=== PATIENT | male | born 1985 | race Caucasian/White ===

== ENCOUNTER 2018-02-20 18:22 | Emergency (ER) | payer MEDICAID ==
[~2018-02-20] VITALS: Ht 177.8 cm; Wt 88.5 kg
[2018-02-20] MEDS ORDERED: Norco 5mg/325mg tab ORAL ONE (19:00)
[2018-02-20 19:30] VITALS: BP 127/60
[2018-02-20 20:14] LABS: APPEARANCE,URINE SLIGHTLY CLOUDY; BILIRUBIN, URINE NEGATIVE (NEGATIVE); COLOR,URINE AMBER; GLUCOSE, URINE (UA) NEGATIVE (NEGATIVE); KETONES,URINE NEGATIVE (NEGATIVE); LEUKOCYTE ESTERASE ,URINE 1+ (NEGATIVE); NITRITE,URINE NEGATIVE (NEGATIVE); PH,URINE 7 (4.5-8.0); PROTEIN,URINE 2+ (NEGATIVE); UROBILINOGEN,URINE 1 MG/DL (0.0-1.0)
--- NOTE | 2018-02-20 20:42 | Emergency Room Report ---
History of Present Illness General Chief Complaint: Abdominal Pain Source: Patient Present Illness HPI 32 YO male presents to the ED c/o 02/25 in severity acute onset of flank pain that he describes as sharp and severe that was on and off for about 45 minutes. pt. denies nausea or vomiting, constipation or diarrhea. He denies abdominal tenderness. denies dysuria, hematuria, or urinary frequency. pt. reports hx. of renal stone. denies fevers or chills. denies reproducibility. denies recent trauma or fall. Allergies: Coded Allergies: No Known Allergies (Unverified , 02/20/18) Patient History Past Medical History: see triage record Past Surgical History: none Pertinent Family History: none Reviewed Nursing Documentation: PMH: Agreed; PSxH: Agreed Nursing Documentation-PMH Past Medical History: No History, Except For Review of Systems All Other Systems: negative except mentioned in HPI Physical Exam Vital Signs Date Time Temp Pulse Resp B/P (MAP) Pulse Ox O2 Delivery O2 Flow Rate FiO2 02/20/18 18:17 98.4 86 16 132/78 100 Room Air 98.4 Sp02 EP Interpretation: reviewed, normal General Appearance: no apparent distress, alert, GCS 15, non-toxic Head: normocephalic, atraumatic ENT: hearing grossly normal, normal voice Neck: full range of motion Respiratory: lungs clear, normal breath sounds, speaking full sentences Cardiovascular #1: regular rate, rhythm Gastrointestinal: normal bowel sounds, non tender, soft, non-distended, no guarding Genitourinary: normal inspection, no CVA tenderness Musculoskeletal: back normal, normal range of motion, non-tender Neurologic: alert, oriented x3, responsive, motor strength/tone normal, sensory intact, speech normal, grossly normal Psychiatric: judgement/insight normal Skin: normal color, no rash, warm/dry, well hydrated, other - no bruises or rashes Medical Decision Making PA Attestation Dr. guzman is my supervising Physician whom patient management has been discussed with. Diagnostic Impression: Primary Impression: Renal calculi Additional Impression: Urinary tract infection Qualified Codes: N30.01 - Acute cystitis with hematuria ER Course Pt. presents to the ED c/o 02/25 in severity acute onset of flank pain that he describes as sharp and severe that was on and off for about 45 minutes. pt. denies nausea or vomiting, constipation or diarrhea. He denies abdominal tenderness. denies dysuria, hematuria, or urinary frequency. pt. reports hx. of renal stone. denies fevers or chills. denies reproducibility. denies recent trauma or fall. Ddx considered but are not limited to Diverticulitis, acute appy, diarrhea,UC, PUD, GE, pancreatitis, gallstone, kidney stone, pyelonephritis, UTI, obstruction. Vital signs: are WNL, pt. is afebrile H&PE are most consistent with renal stone ORDERS: - UA: bacteria and RBC's with elevated inflammatory markers consistent with UTI - CT abdomen and pelvis no contrast: 3mm renal stone in the right ureter, non obstruction per official radiology report. ED INTERVENTIONS: -- 1000NS --5mg Bland - Flomax PO -d/w pt. results of CT, and that 3mm should pass, however he needs to follow up with his PCP in 3-5 days. d/w pt. that hydration is very important. pt. requests work note excusing him for today. DISCHARGE: At this time pt. is stable for d/c to home. Will provide printed patient care instructions, and any necessary prescriptions. Care plan and follow up instructions have been discussed with the patient prior to discharge. Labs Test 02/20/18 19:15 Urine Color Kaylie Urine Appearance Slightly cloudy Urine pH 7 (4.5-8.0) Urine Specific [place] 1.010 (1.005-1.035) Urine Protein 2+ (NEGATIVE) Urine Glucose (UA) Negative (NEGATIVE) Urine Ketones Negative (NEGATIVE) Urine Blood 5+ (NEGATIVE) Urine Nitrite Negative (NEGATIVE) Urine Bilirubin Negative (NEGATIVE) Urine Ictotest Negative (NEGATIVE) Urine Urobilinogen 1 MG/DL (0.0-1.0) Urine Leukocyte Esterase 1+ (NEGATIVE) Urine RBC Tntc /HPF (0 - 0) Urine WBC 10-15 /HPF (0 - 0) Urine Squamous Epithelial Cells Occasional /LPF Urine Calcium Oxalate Crystals Many /LPF (NONE) Urine Bacteria Moderate /HPF (NONE) CT/MRI/US Diagnostic Results CT/MRI/US Diagnostic Results : Imaging Test Ordered: CT Abdomen and pelvis no contrast Impression CT abdomen and pelvis no contrast: 3mm renal stone in the right ureter, non obstruction per official radiology report. Last Vital Signs Date Time Temp Pulse Resp B/P (MAP) Pulse Ox O2 Delivery O2 Flow Rate FiO2 02/20/18 19:30 97.8 67 16 127/60 100 Room Air 97.8 Disposition: HOME, SELF-CARE Condition: Stable Scripts Hydrocodone Bit/Acetaminophen 5-325* (NORCO 5-325*) 1 Each Tablet 1 TAB ORAL Q6H PRN for For Pain, #9 TAB 0 Refills Prov: Vonda Haynes 02/20/18 Cephalexin* (KEFLEX*) 500 Mg Capsule 500 MG ORAL EVERY 12 HOURS for 7 Days, #14 CAP 0 Refills Prov: Vonda Haynes 02/20/18 Tamsulosin HCl (Flomax) 0.4 Mg Cap.er.24h 0.4 MG ORAL DAILY, #2 CAP Prov: Vonda Haynes 02/20/18 Departure Forms: Return to Work Return to Work Date: Feb 20, 2018 Work Restrictions: None Other Restrictions: please excuse for 02/20/18. Return to Full Activity: Feb 21, 2018 Patient Instructions: Kidney Stones, [id number], Urinary Tract Infection, [id number] Additional Instructions: Take medications as directed. Follow up with a Primary Care Provider in 3-5 days, even if your symptoms have resolved. --Please review list of primary care clinics, if you do not already have a primary care provider Return sooner to ED if new symptoms occur, or current symptoms become worse. Do not drink alcohol, drive, or operate heavy machinery while taking Bland as this may cause drowsiness. - Please note that this Emergency Department Report was dictated using [employer] technology software, occasionally this can lead to erroneous entry secondary to interpretation by the dictation equipment. Vonda Haynes Feb 20, 2018 20:42
[2018-02-20] MEDS ORDERED: FLOMAX0.4 MG ORAL (20:50)
[2018-02-20] MEDS ORDERED: NORCO 5-325 TA1 EACH ORAL (20:50)
[2018-02-20] MEDS ORDERED: CEPHALEXIN500 MG ORAL (20:50)
[2018-02-20] MEDS ORDERED: Tamsulosin 0.4mg cap ORAL SCH (21:00)
[2018-02-20 21:05] VITALS: BP 120/80
== END 2018-02-20 23:00 | disposition home or self-care (01) ==
LOC: EDBD 18:22 → EMR 22:47
DX: N20.0 Calculus of kidney (principal); N39.0 Urinary tract infection, site not specified; R10.84 Generalized abdominal pain
CPT/HCPCS: 74176; 81003; 87086; 96360; 99284